=== PATIENT | male | born 1970 | race Caucasian/White ===

== ENCOUNTER 2019-02-18 20:58 | Emergency (ER) | payer OTHER ==
[~2019-02-18] VITALS: Ht 160 cm; Wt 66.0 kg
[2019-02-18 21:01] VITALS: Ht 160 cm; Wt 66.0 kg
--- NOTE | 2019-02-18 23:05 | ERD ---
ER Documentation Chief Complaint Chief Complaint bib ra / pd for etoh, from mother's home, denies si HPI Patient is a 48-year-old male with posttraumatic stress disorder who presents suicidal. The patient was brought in by ambulance. The mother called [employer] because the patient was making suicidal threats. He was brought in by beulah carr. He said that he has suicidal ideation and plans to "take a rifle to the head". He said that he does have access to guns at his house. He admits to drinking 8 beers tonight. Upon review of old medical records this is the patient's first visit to the emergency department. ROS All systems reviewed and are negative except as per history of present illness. Allergies Allergies: Coded Allergies: No Known Allergy (Unverified , 02/18/19) PMhx/Soc Medical and Surgical Hx: pt denies Medical Hx History of Surgery: Yes (left arm) Hx Alcohol Use: Yes Hx Substance Use: No Hx Tobacco Use: No Smoking Status: Never smoker FmHx Family History: No diabetes Physical Exam Vitals Vital Signs Date Temp Pulse Resp B/P (MAP) Pulse Ox O2 O2 Flow FiO2 Time Delivery Rate 02/18/19 98.1 79 19 144/85 100 21:01 (104) Physical Exam Const: No acute distress Head: Atraumatic Eyes: Normal Conjunctiva ENT: Normal External Ears, Nose and Mouth. Neck: Full range of motion. No meningismus. Resp: Clear to auscultation bilaterally Cardio: Regular rate and rhythm, no murmurs Abd: Soft, non tender, non distended. Normal bowel sounds Skin: No petechiae or rashes Back: No midline or flank tenderness Ext: No cyanosis, or edema Neur: Awake but intoxicated but answering questions appropriately Psych: Depressed affect and positive for suicidal ideation with plan to shoot himself Result Diagram: 02/18/[id number] Results 24 hrs Laboratory Tests Test 02/18/19 21:35 White Blood Count 5.4 10^3/ul Red Blood Count 3.41 10^6/ul Hemoglobin 11.1 g/dl Hematocrit 33.3 % Mean Corpuscular Volume 97.7 fl Mean Corpuscular Hemoglobin 32.6 pg Mean Corpuscular Hemoglobin Concent 33.3 g/dl Red Cell Distribution Width 13.0 % Platelet Count 238 10^3/UL Mean Platelet Volume 8.6 fl Immature Granulocytes % 0.700 % Neutrophils % 68.0 % Lymphocytes % 21.1 % Monocytes % 6.0 % Eosinophils % 3.5 % Basophils % 0.7 % Nucleated Red Blood Cells % 0.0 /100WBC Immature Granulocytes # 0.040 10^3/ul Neutrophils # 3.6 10^3/ul Lymphocytes # 1.1 10^3/ul Monocytes # 0.3 10^3/ul Eosinophils # 0.2 10^3/ul Basophils # 0.0 10^3/ul Nucleated Red Blood Cells # 0.0 10^3/ul Urine Color STRAW Urine Clarity CLEAR Urine pH 6.0 Urine Specific [place] 1.004 Urine Ketones NEGATIVE mg/dL Urine Nitrite NEGATIVE mg/dL Urine Bilirubin NEGATIVE mg/dL Urine Urobilinogen NEGATIVE mg/dL Urine Leukocyte Esterase NEGATIVE Jesus/ul Urine Hemoglobin NEGATIVE mg/dL Urine Glucose NEGATIVE mg/dL Urine Total Protein NEGATIVE mg/dl Sodium Level 140 mmol/L Potassium Level 4.2 mmol/L Chloride Level 102 mmol/L Carbon Dioxide Level 28 mmol/L Anion Gap 10 Blood Urea Nitrogen 6 mg/dl Creatinine 0.82 mg/dl Est Glomerular Filtrat Rate mL/min > 60 mL/min Glucose Level 82 mg/dl Calcium Level 8.6 mg/dl Total Bilirubin 0.4 mg/dl Direct Bilirubin 0.00 mg/dl Indirect Bilirubin 0.4 mg/dl Aspartate Amino Transf (AST/SGOT) 115 IU/L Alanine Aminotransferase (ALT/SGPT) 67 IU/L Alkaline Phosphatase 110 IU/L Total Protein 7.2 g/dl Albumin 4.1 g/dl Globulin 3.10 g/dl Albumin/Globulin Ratio 1.32 Salicylates Level < 1.0 mg/dl Urine Opiates Screen Negative Acetaminophen Level < 10.0 ug/ml Urine Barbiturates Negative Urine Amphetamines Screen Negative Urine Benzodiazepines Screen Negative Urine Cocaine Screen Negative Urine Cannabinoids Negative Ethyl Alcohol Level 440.0 mg/dl Procedures/MDM Patient is a 48-year-old male with posttraumatic stress disorder presents with suicidal ideation. He has a plan to shoot himself in the head with a gun. The patient's alcohol level is greater than 400 however. Other laboratory studies are basically normal and he is medically cleared at this time. The patient will be seen by psychiatry who will determine final disposition. Departure Diagnosis: Primary Impression: Alcoholic intoxication Complication of substance-induced condition: uncomplicated Qualified Codes: F10.920 - Alcohol use, unspecified with intoxication, uncomplicated Additional Impression: Suicidal ideation ERMIAS LAZO MD February 18, 2019 23:05
--- NOTE | 2019-02-18 23:26 | PSY ---
Date/Time of Note Date/Time of Note DATE: 02/19/19 TIME: 08:01 Psychiatric Subjective Eval Consent Pt consented to telemedicine: Yes Subjective Evaluation Patient location: emergency Chief Complaint: bib ra / pd for etoh, from mother's home, denies si Reason for consult: Disposition Recommendations History of present illness 48 yo man with unknown psychiatric history, BIB police/EMS after he reportedly "called 911 on himself". BAL 440 2 hrs ago. He has been drinking heavily recently, including earlier today. His father dies in September. He reportedly got into an argument with his mom this evening during which he expressed SI, has been having plans to shoot himself, owns guns. Called 911. Placed on a 5150 by police. In the ED, he has been denying current SI. On interview, Mr. Wylie says that he is here because he has been "a little depressed". He goes on to describe that his father recently and that since his "everything has been on me". He describes being overwhelmed by this. He says that his mother has Alzheimer's and doesn't "pull her own weight". He says that he has been drinking 8 beers per day, Bud[employer]iser 12 ozs. Denies more than this. Has been drinking every day for at least the past month. Has been in treatment for alcohol twice. Wants to stop. Has been treated on anxiety and depression and panic attacks in the past, not recently. Is on disability for panic attacks. Does not work. Lives with mom. He says that his mom is the one who should be on a 5150, not him. Denies Current SI. Denies A/VHs. Denies a h/o SAs or psychiatric hospitalizations. Reports a h/o withdrawals "shakes" when he does not drink. Past psychiatric history Panic Attacks, Anxiety, Depression Hospitalization: no Family History Mom with Alzheimer's per pt. Medical history AST 115 Allergies: Coded Allergies: No Known Allergy (Unverified , 02/18/19) Substance Abuse Substance use: other Substance abuse history: Yes (Alcohol as in HPI) Prior substance abuse treatmen: Yes (see hpi) Social History Marital status: single DPA/Conservatorship: No Occupation/Chcf: see hpi Psychiatric Objective Eval Review of Systems: Review of Systems: Not Applicable Mental Status Examination: Appearance: Disheveled Eye Contact: Fair Psychomotor Activity: Slow Behavior: Guarded Speech: Slowed AFFECT: Depressed Mood: Depressed Though Process: Circumstantial Thought Content: Normal Suicidal: No (Denies) Homicidal: No On 72 hour hold: Yes Orientation: x3 Cognition: Drowsy Insight: Impared Judgement: Impared Attention Span: Distractible Laboratory Results Laboratory Tests Test 02/18/19 21:35 White Blood Count 5.4 10^3/ul Red Blood Count 3.41 10^6/ul Hemoglobin 11.1 g/dl Hematocrit 33.3 % Mean Corpuscular Volume 97.7 fl Mean Corpuscular Hemoglobin 32.6 pg Mean Corpuscular Hemoglobin Concent 33.3 g/dl Red Cell Distribution Width 13.0 % Platelet Count 238 10^3/UL Mean Platelet Volume 8.6 fl Immature Granulocytes % 0.700 % Neutrophils % 68.0 % Lymphocytes % 21.1 % Monocytes % 6.0 % Eosinophils % 3.5 % Basophils % 0.7 % Nucleated Red Blood Cells % 0.0 /100WBC Immature Granulocytes # 0.040 10^3/ul Neutrophils # 3.6 10^3/ul Lymphocytes # 1.1 10^3/ul Monocytes # 0.3 10^3/ul Eosinophils # 0.2 10^3/ul Basophils # 0.0 10^3/ul Nucleated Red Blood Cells # 0.0 10^3/ul Urine Color STRAW Urine Clarity CLEAR Urine pH 6.0 Urine Specific [place] 1.004 Urine Ketones NEGATIVE mg/dL Urine Nitrite NEGATIVE mg/dL Urine Bilirubin NEGATIVE mg/dL Urine Urobilinogen NEGATIVE mg/dL Urine Leukocyte Esterase NEGATIVE Jesus/ul Urine Hemoglobin NEGATIVE mg/dL Urine Glucose NEGATIVE mg/dL Urine Total Protein NEGATIVE mg/dl Sodium Level 140 mmol/L Potassium Level 4.2 mmol/L Chloride Level 102 mmol/L Carbon Dioxide Level 28 mmol/L Anion Gap 10 Blood Urea Nitrogen 6 mg/dl Creatinine 0.82 mg/dl Est Glomerular Filtrat Rate mL/min > 60 mL/min Glucose Level 82 mg/dl Calcium Level 8.6 mg/dl Total Bilirubin 0.4 mg/dl Direct Bilirubin 0.00 mg/dl Indirect Bilirubin 0.4 mg/dl Aspartate Amino Transf (AST/SGOT) 115 IU/L Alanine Aminotransferase (ALT/SGPT) 67 IU/L Alkaline Phosphatase 110 IU/L Total Protein 7.2 g/dl Albumin 4.1 g/dl Globulin 3.10 g/dl Albumin/Globulin Ratio 1.32 Salicylates Level < 1.0 mg/dl Urine Opiates Screen Negative Acetaminophen Level < 10.0 ug/ml Urine Barbiturates Negative Urine Amphetamines Screen Negative Urine Benzodiazepines Screen Negative Urine Cocaine Screen Negative Urine Cannabinoids Negative Ethyl Alcohol Level 440.0 mg/dl Assessment and Plan Assessment/Diagnosis Diagnosis Anxiety Disorder NOS Depressive Disorder NOS Mr. Wylie is 48 yo man with a h/o anxiety, depression, alcohol dependence, BIB EMS/POLICE on a 5150 for DTS after expressing SI with plans and intent to shoot himself with guns that he owns. Though he is now denying SI, Mr. Wylie appears to be an unreliable historian at this time. He has several risk factors for co mpleted suicide. Current risk for suicide is high. 5150 criteria for DTS is met. Admission to inpatient psychiatry indicated for safety and stabilization once medically cleared. Recommendation/Plan Medication Management Start alcohol withdrawal protocol (aggressive, high risk for complicated withdrawal) Multiple antipsychotics: No Discharge Disposition: Psychiatric inpatient Legal Status: Continue involuntary hold LEXI ROMAN MD February 18, 2019 23:15
--- NOTE | 2019-02-19 06:27 | EN ---
Date/Time of Note Date/Time of Note DATE: 02/19/19 TIME: 06:26 ER Progress Note I assumed patient care at 6 AM. I have reviewed the patient's chart including lab work. I have reviewed the tele-psychiatry evaluation. Today, this is a 48-year-old male presents on a 5150 hold from the police which has been confirmed by tele-psychiatry. Patient has been drinking alcohol significantly and has been significantly depressed expressing suicidal ideation with access to guns. Medically, patient is noted to be intoxicated with his alcohol level improving over the course of observation. He has no significant withdrawal symptoms. Patient has had no medical complaints and his medical clearance labs other than the alcohol have otherwise been normal. On current evaluation, patient is sleeping comfortably with no withdrawal symptoms. He remains him dynamically stable and "medically clear." Plan: Patient will continue under observation including observation for wi thdrawal symptoms from alcohol pending psychiatric placement. ROYA AVILA February 19, 2019 06:27
--- NOTE | 2019-02-19 13:25 | PSY ---
Date/Time of Note Date/Time of Note DATE: 02/19/19 TIME: 13:20 Psychiatric Subjective Eval Consent Pt consented to telemedicine: Yes Subjective Evaluation Patient location: emergency Chief Complaint: bib ra / pd for etoh, from mother's home, denies si Reason for consult: Disposition Recommendations History of present illness "I said I am suicidal to get attention from my mother!" "I called 911 because my mother has demenita and wanders away from home!" 48 yo man with unknown psychiatric history, BIB police/EMS after he reportedly "called 911 on himself". BAL 440 . He has been drinking heavily recently, including earlier today. His father dies in September. He reportedly got into an argument with his mom this evening during which he expressed SI, has been having plans to shoot himself, owns guns. Called 911. Placed on a 5150 by police. In the ED, he has been denying current SI. On interview, Mr. Wylie denies any SI, says he wanted to see his mother's reaction, and says his mother called 911. Then he says he called 911 on his mother. Denies SI. Anxious. Evasive, denies very being under psychiatric care. However, then admits he is on SSI due to panic attacks. He says that he is here because he has been "a little depressed". He goes on to describe that his father recently and that since his "everything has been on me". He describes being overwhelmed by this. He says that his mother has Alzheimer's and doesn't "pull her own weight". He says that he has been drinking 8 beers per day, Budweiser 12 ozs. Denies more than this. Has been drinking every day for at least the past month. Has been in treatment for alcohol twice. Wants to stop. Has been treated on anxiety and depression and panic attacks in the past, not recently. Is on disability for panic attacks. Does not work. Lives with mom. He says that his mom is the one who should be on a 5150, not him. Denies Current SI. Denies A/VHs. Denies a h/o SAs or psychiatric hospitalizations. Reports a h/o withdrawals "shakes" when he does not drink Past psychiatric history unknown Hospitalization: no Medical history Problems Medical Problems: (1) Alcoholic intoxication Status: Acute (2) Suicidal ideation Status: Acute Allergies: Coded Allergies: No Known Allergy (Unverified , 02/18/19) Substance Abuse Substance abuse history: Yes Prior substance abuse treatmen: Yes Social History Marital status: single DPA/Conservatorship: No Occupation/Penitentiary: see hpi Psychiatric Objective Eval Review of Systems: Review of Systems: Not Applicable Mental Status Examination: Appearance: Disheveled Eye Contact: Good Psychomotor Activity: Normal Behavior: Cooperative Speech: Clear AFFECT: Anxious Mood: Anxious Though Process: Illogical Thought Content: Normal Suicidal: Yes Homicidal: No On 72 hour hold: Yes Orientation: x4 Cognition: Alert Insight: Impared Judgement: Impared Laboratory Results Laboratory Tests Test 02/18/19 21:35 02/19/19 05:30 02/19/19 10:49 White Blood Count 5.4 10^3/ul Red Blood Count 3.41 10^6/ul Hemoglobin 11.1 g/dl Hematocrit 33.3 % Mean Corpuscular Volume 97.7 fl Mean Corpuscular Hemoglobin 32.6 pg Mean Corpuscular 33.3 g/dl Hemoglobin Concent Red Cell Distribution Width 13.0 % Platelet Count 238 10^3/UL Mean Platelet Volume 8.6 fl Immature Granulocytes % 0.700 % Neutrophils % 68.0 % Lymphocytes % 21.1 % Monocytes % 6.0 % Eosinophils % 3.5 % Basophils % 0.7 % Nucleated Red Blood Cells % 0.0 /100WBC Immature Granulocytes # 0.040 10^3/ul Neutrophils # 3.6 10^3/ul Lymphocytes # 1.1 10^3/ul Monocytes # 0.3 10^3/ul Eosinophils # 0.2 10^3/ul Basophils # 0.0 10^3/ul Nucleated Red Blood Cells # 0.0 10^3/ul Urine Color STRAW Urine Clarity CLEAR Urine pH 6.0 Urine Specific [place] 1.004 Urine Ketones NEGATIVE mg/dL Urine Nitrite NEGATIVE mg/dL Urine Bilirubin NEGATIVE mg/dL Urine Urobilinogen NEGATIVE mg/dL Urine Leukocyte Esterase NEGATIVE Jesus/ul Urine Hemoglobin NEGATIVE mg/dL Urine Glucose NEGATIVE mg/dL Urine Total Protein NEGATIVE mg/dl Sodium Level 140 mmol/L Potassium Level 4.2 mmol/L Chloride Level 102 mmol/L Carbon Dioxide Level 28 mmol/L Anion Gap 10 Blood Urea Nitrogen 6 mg/dl Creatinine 0.82 mg/dl Est Glomerular Filtrat > 60 mL/min Rate mL/min Glucose Level 82 mg/dl Calcium Level 8.6 mg/dl Total Bilirubin 0.4 mg/dl Direct Bilirubin 0.00 mg/dl Indirect Bilirubin 0.4 mg/dl Aspartate Amino Transf (AST/SGOT) 115 IU/L Alanine 67 IU/L Aminotransferase (ALT/SGPT) Alkaline Phosphatase 110 IU/L Total Protein 7.2 g/dl Albumin 4.1 g/dl Globulin 3.10 g/dl Albumin/Globulin Ratio 1.32 Salicylates Level < 1.0 mg/dl Urine Opiates Screen Negative Acetaminophen Level < 10.0 ug/ml Urine Barbiturates Negative Urine Amphetamines Screen Negative Urine Benzodiazepines Screen Negative Urine Cocaine Screen Negative Urine Cannabinoids Negative Ethyl Alcohol Level 440.0 mg/dl 240.0 mg/dl 161.0 mg/dl Assessment and Plan Assessment/Diagnosis Diagnosis ALCOHOL USE DISORDER WITH MOOD DISORDER. Recommendation/Plan Medication Management [facility] PROTOCOL. Multiple antipsychotics: Yes Discharge Disposition: Psychiatric inpatient Legal Status: Continue involuntary hold KALPANA BRITT MD February 19, 2019 13:25
[2019-02-19] MEDS ORDERED: LORAZEPAM 1 MG TAB PO ONE (16:00)
[2019-02-20 20:10] VITALS: BP 131/86; PULSE 76; RESP 20
[2019-02-20] MEDS ORDERED: LORAZEPAM 1 MG TAB PO ONE (20:30)
== END 2019-02-20 20:42 | disposition home or self-care (01) ==
LOC: E/R 20:58
DX: F10.920 Alcohol use, unspecified with intoxication, uncomplicated (principal); R40.2142 Coma scale, eyes open, spontaneous, at arrival to emergency department; R40.2362 Coma scale, best motor response, obeys commands, at arrival to emergency department; R40.2252 Coma scale, best verbal response, oriented, at arrival to emergency department
CPT/HCPCS: 36415; 80053; 80307; 81003; 85025; Z7502; Z7610; 99285